=== PATIENT | female | born 1940 | race Caucasian/White ===

== ENCOUNTER 2016-11-07 18:43 | Emergency (ER) | payer MEDICARE, BC ==
--- NOTE | ~2016-11-07 | CR230 ---
[facility] A Service of [facility] RADIOLOGY TEXT RESULTS PATIENT: ISABELA NORRIS LOCATION: [facility] : 38 UNIT #: [id number] AGE: [address]: Amanda Roche MD SEX: F ORDER DR: [id number] [facility] [address] [place], [place] [address] [id number] E MR#: [id number] Acc #: [id number] NAME: ISABELA NORRIS. : 1940 SEX: F STUDY DATE/TIME: 11/07/2016 21:00 UNIT: [facility] ROOM: STUDY DESCRIPTION: CR Shoulder Min 2 View Rt Attending Physician: Amanda Roche M.D. Ordering Physician: Amanda Roche M.D. Primary Care Physician: Husam Beasley M.D. MEDICAL IMAGING REPORT This report is preliminary unless electronic signature is present EXAM Right shoulder 3 views HISTORY Fall today at [facility]. Complaining of shoulder pain. FINDINGS Three views are submitted. The examination shows generalized osteopenia. There is marked narrowing of the space between the acromion and humeral head with superior subluxation of the humeral head relative to the glenoid. 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 No fractures are seen. CONCLUSION 1. AC joint osteoarthropathy. 2. Chronic degeneration of the rotator cuff with superior subluxation of the humeral head relative to the bony glenoid. 3. No acute findings. Dictated by... Dameon Brown M.D. THIS IS AN ELECTRONICALLY VERIFIED REPORT Dameon Brown M.D. at 11/08/2016 6:08 PM JIM/red TD: 11/08/2016 06:39 JOB #: [id number] MEDICAL IMAGING REPORT Page 1 of 1 COPY
--- NOTE | ~2016-11-07 | CT52 ---
[facility] A Service of [facility] RADIOLOGY TEXT RESULTS PATIENT: ISABELA NORRIS LOCATION: [facility] : 38 UNIT #: [id number] AGE: [address]: Amanda Roche MD SEX: F ORDER DR: [id number] [facility] [address] [place], [place] [address] [id number] E MR#: [id number] Acc #: [id number] NAME: ISABELA NORRIS : 1940 SEX: F STUDY DATE/TIME: 11/07/2016 20:30 UNIT: [facility] ROOM: STUDY DESCRIPTION: CT Cervical Spine Wo Cont Attending Physician: Amanda Roche M.D. Ordering Physician: Amanda Roche M.D. Primary Care Physician: Husam Beasley M.D. MEDICAL IMAGING REPORT This report is preliminary unless electronic signature is present EXAM CT of the cervical spine HISTORY Fell today with neck pain. TECHNIQUE Transaxial imaging of the cervical spine was performed without contrast media. Multiplanar reconstructions were obtained and reviewed. This CT examination was performed with one or more of the following radiation dose reduction techniques: automatic exposure control, adjustment of mA and/or kV according to patient size, and iterative reconstruction. FINDINGS Cervical alignment is normal. There is degenerative disc disease with disc space narrowing at C5-6, C6-7 and to a lesser degree at C7-T1. There is facet disease throughout the cervical spine. There is facet disease in the upper thoracic spine as well. Atlantoaxial relationships are intact. No fractures or subluxation is seen. No paraspinous soft tissue edema or fluid collections. CONCLUSION Multilevel degenerative disc disease most prominent C5-6 and C6-7. Advanced multilevel facet disease. No fractures or subluxation identified. Dictated by... Dameon Brown M.D. THIS IS AN ELECTRONICALLY VERIFIED REPORT Dameon Brown M.D. at 11/08/2016 6:08 PM JIM/red [facility] A Service of [facility] RADIOLOGY TEXT RESULTS PATIENT: ISABELA NORRIS LOCATION: [facility] #: [id number] : 38 UNIT #: [id number] AGE: [address]: Amanda Roche MD SEX: F ORDER DR: TD: 11/08/2016 06:30 JOB #: [id number] MEDICAL IMAGING REPORT Page 1 of 1 COPY
--- NOTE | ~2016-11-07 | CR282 ---
[facility] A Service of [facility] RADIOLOGY TEXT RESULTS PATIENT: ISABELA NORRIS LOCATION: [facility] : 38 UNIT #: [id number] AGE: [address]: Amanda Roche MD SEX: F ORDER DR: [id number] [facility] [address] [place], [place] [address] [id number] E MR#: [id number] Acc #: [id number] NAME: ISABELA NORRIS. : 1940 SEX: F STUDY DATE/TIME: 11/07/2016 20:57 UNIT: [facility] ROOM: STUDY DESCRIPTION: CR Wrist Min 3 View Rt Attending Physician: Amanda Roche M.D. Ordering Physician: Amanda Roche M.D. Primary Care Physician: Husam Beasley M.D. MEDICAL IMAGING REPORT This report is preliminary unless electronic signature is present EXAM Wrist, right, 3 views. HISTORY Fell today at [place] with right wrist pain. COMMENT Three views of the right wrist are reviewed. No prior. See separate hand dictation. There is a fracture involving the distal radius. It may be minimally comminuted. It is predominately obliquely oriented at the radial styloid and crosses the articular surface of the distal radius with minimal displacement appreciated. There is probably subtle impaction. Additionally there is severe osteoarthritis. Negative ulnar variance is noted relatively milder than on the left. IMPRESSION There is a predominately obliquely oriented fracture through the radial styloid with minimal displacement. This does involve the articular surface. Fracture fragments may be minimally impacted. There is preexisting severe osteoarthritis. Dictated by... Chiara Maurer M.D. THIS IS AN ELECTRONICALLY VERIFIED REPORT Chiara Maurer M.D. at 11/08/2016 10:05 AM TACO/sharath TD: 11/08/2016 07:11 JOB #: [id number] MEDICAL IMAGING REPORT Page 1 of 1 COPY
--- NOTE | ~2016-11-07 | CR281 ---
[facility] A Service of [facility] RADIOLOGY TEXT RESULTS PATIENT: ISABELA NORRIS LOCATION: [facility] : 38 UNIT #: [id number] AGE: [address]: Amanda Roche MD SEX: F ORDER DR: [id number] [facility] [address] [place], [place] [address] [id number] E MR#: [id number] Acc #: [id number] NAME: ISABELA NORRIS. : 1940 SEX: F STUDY DATE/TIME: 11/07/2016 20:45 UNIT: [facility] ROOM: STUDY DESCRIPTION: CR Wrist Min 3 View Lt Attending Physician: Amanda Roche M.D. Ordering Physician: Amanda Roche M.D. Primary Care Physician: Husam Beasley M.D. MEDICAL IMAGING REPORT This report is preliminary unless electronic signature is present EXAM Left wrist. HISTORY Fell today at [place] and has left wrist pain. COMMENT Three-views of the left wrist are reviewed. There is negative ulnar variance. There are changes of osteoarthritis most severe at the first carpometacarpal joint. No acute fracture or dislocation is appreciated. IMPRESSION Negative ulnar variance. Osteoarthritis. No acute fracture, dislocation or radiopaque foreign body appreciated. Dictated by... Chiara Maurer M.D. THIS IS AN ELECTRONICALLY VERIFIED REPORT Chiara Maurer M.D. at 11/08/2016 10:05 AM TACO/sharath TD: 11/08/2016 06:58 JOB #: [id number] MEDICAL IMAGING REPORT Page 1 of 1 COPY
--- NOTE | ~2016-11-07 | CR141 ---
[facility] A Service of [facility] RADIOLOGY TEXT RESULTS PATIENT: ISABELA NORRIS LOCATION: [facility] : 38 UNIT #: [id number] AGE: [address]: Amanda Roche MD SEX: F ORDER DR: [id number] [facility] [address] [place], [place] [address] [id number] E MR#: [id number] Acc #: [id number] NAME: ISABELA NORRIS. : 1940 SEX: F STUDY DATE/TIME: 11/07/2016 20:43 UNIT: [facility] ROOM: STUDY DESCRIPTION: CR Hand Min 3 Views Lt Attending Physician: Amanda Roche M.D. Ordering Physician: Amanda Roche M.D. Primary Care Physician: Husam Beasley M.D. MEDICAL IMAGING REPORT This report is preliminary unless electronic signature is present EXAM Left hand HISTORY Bilateral hand, wrist, knee, right shoulder pain. Patient fell today at [place]. Also has chest pain. COMMENT Three views of the left hand are reviewed. No previous. Fingers are incompletely extended and the overlap limits the study. There is extensive osteoarthritis noted. This appears to be fairly severe. See the separate dictation for the wrist. No acute fracture, dislocation or radiopaque foreign body appreciated left hand. IMPRESSION Severe osteoarthritis left hand. No acute fracture, dislocation or radiopaque foreign body appreciated left hand. See separate wrist dictation. Dictated by... Chiara Maurer M.D. THIS IS AN ELECTRONICALLY VERIFIED REPORT Chiara Maurer M.D. at 11/08/2016 10:05 AM TACO/red TD: 11/08/2016 07:02 JOB #: [id number] MEDICAL IMAGING REPORT Page 1 of 1 COPY
--- NOTE | ~2016-11-07 | CT101 ---
[facility] A Service of [facility] RADIOLOGY TEXT RESULTS PATIENT: ISABELA NORRIS LOCATION: [facility] : 38 UNIT #: [id number] AGE: [address]: Amanda Roche MD SEX: F ORDER DR: [id number] [place] [id number] [facility]. [place], [place] [address] [id number] E MR#: [id number] Acc #: [id number] NAME: ISABELA NORRIS : 1940 SEX: F STUDY DATE/TIME: 11/07/2016 20:27 UNIT: [facility] ROOM: STUDY DESCRIPTION: CT Maxillofacial Area Wo Cont Attending Physician: Amanda Roche M.D. Ordering Physician: Amanda Roche M.D. Primary Care Physician: Husam Beasley M.D. MEDICAL IMAGING REPORT This report is preliminary unless electronic signature is present EXAM CT of the facial bones. HISTORY Fell today striking face, right orbital swelling. TECHNIQUE Axial imaging of the facial bones is performed. This CT exam was performed with one or more of the following radiation dose reduction techniques: Automatic exposure control, adjustment of mA and/or kV according to patient size, and iterative reconstruction. FINDINGS The study is limited by motion degradation due to the patient's Parkinson's disease. There is mucosal thickening in the right maxillary sinus with a small amount of fluid. There is abnormal soft tissue density in the right ethmoid sinuses with a fracture through the medial wall and herniation of fat. There is mild right exophthalmos. No retrobulbar fluid collections are seen. There is preseptal periorbital soft tissue swelling. CONCLUSIONS 1. Fracture through the medial wall of the right orbit. A small amount of fat protrudes through the fracture and there is edema in the right ethmoid sinuses. 2. There is mucosal edema in the right maxillary sinus and a small amount of fluid although I do not see a definite maxillary floor fracture. 3. Mild right-sided exophthalmos. 4. Preseptal periorbital soft tissue swelling on the right. Dictated by... [facility] A Service of [facility] RADIOLOGY TEXT RESULTS PATIENT: ISABELA NORRIS LOCATION: [facility] : 38 UNIT #: [id number] AGE: [address]: Amanda Roche MD SEX: F ORDER DR: Dameon Brown M.D. THIS IS AN ELECTRONICALLY VERIFIED REPORT Dameon Brown M.D. at 11/08/2016 6:08 PM eRji TD: 11/08/2016 06:22 JOB #: [id number] MEDICAL IMAGING REPORT Page 1 of 1 COPY
--- NOTE | ~2016-11-07 | CR169 ---
[facility] A Service of [facility] RADIOLOGY TEXT RESULTS PATIENT: ISABELA NORRIS LOCATION: [facility] : 38 UNIT #: [id number] AGE: [address]: Amanda Roche MD SEX: F ORDER DR: [id number] [facility] [address] [place], [place] [address] [id number] E MR#: [id number] Acc #: [id number] NAME: ISABELA NORRIS. : 1940 SEX: F STUDY DATE/TIME: 11/07/2016 20:47 UNIT: [facility] ROOM: STUDY DESCRIPTION: CR Knee 2 Views Lt Attending Physician: Amanda Roche M.D. Ordering Physician: Amanda Roche M.D. Primary Care Physician: Husam Beasley M.D. MEDICAL IMAGING REPORT This report is preliminary unless electronic signature is present EXAM Left knee. HISTORY Fell today at [place]. Left knee pain. COMMENT Three films of the left knee reviewed. Patient has had a previous left knee arthroplasty. There is no evidence for acute fracture, dislocation or loosening. Probably some soft tissue swelling anterior to the patella. IMPRESSION Status post left knee arthroplasty without evidence for acute fracture, dislocation or prosthesis loosening. There does appear to be some anterior soft tissue swelling. Comparison film from 10/21/2006 has been restored and the arthroplasty changes are new from that time. Dictated by... Chiara Maurer M.D. THIS IS AN ELECTRONICALLY VERIFIED REPORT Chiara Maurer M.D. at 11/08/2016 10:05 AM TACO/sharath TD: 11/08/2016 07:04 JOB #: [id number] MEDICAL IMAGING REPORT Page 1 of 1 COPY
--- NOTE | ~2016-11-07 | CR142 ---
[facility] A Service of [facility] RADIOLOGY TEXT RESULTS PATIENT: ISABELA NORRIS LOCATION: [facility] : 38 UNIT #: [id number] AGE: [address]: Amanda Roche MD SEX: F ORDER DR: [id number] [facility] [address] [place], [place] [address] [id number] E MR#: [id number] Acc #: [id number] NAME: ISABELA NORRIS : 1940 SEX: F STUDY DATE/TIME: 11/07/2016 20:56 UNIT: [facility] ROOM: STUDY DESCRIPTION: CR Hand Min 3 Views Rt Attending Physician: Amanda Roche M.D. Ordering Physician: Amanda Roche M.D. Primary Care Physician: Husam Beasley M.D. MEDICAL IMAGING REPORT This report is preliminary unless electronic signature is present EXAM Right hand HISTORY Fell today at [place] with right hand pain. COMMENT Three views of the right hand are reviewed. There is severe osteoarthritis present. Since the fingers are not fully extended, this somewhat limits the study but no acute fracture, dislocation or radiopaque foreign body is appreciated. IMPRESSION Severe osteoarthritis right hand. Dictated by... Chiara Maurer M.D. THIS IS AN ELECTRONICALLY VERIFIED REPORT Chiara Maurer M.D. at 11/08/2016 10:05 AM TACO/red TD: 11/08/2016 07:05 JOB #: [id number] MEDICAL IMAGING REPORT Page 1 of 1 COPY
--- NOTE | ~2016-11-07 | CR63 ---
[facility] A Service of [facility] RADIOLOGY TEXT RESULTS PATIENT: ISABELA NORRIS LOCATION: [facility] : 38 UNIT #: [id number] AGE: [address]: Amanda Roche MD SEX: F ORDER DR: [id number] [facility] [address] [place], [place] [address] [id number] E MR#: [id number] Acc #: [id number] NAME: ISABELA NORRIS. : 1940 SEX: F STUDY DATE/TIME: 11/07/2016 21:03 UNIT: [facility] ROOM: STUDY DESCRIPTION: CR Chest 2 View Attending Physician: Amanda Roche M.D. Ordering Physician: Amanda Roche M.D. Primary Care Physician: Husam Beasley M.D. MEDICAL IMAGING REPORT This report is preliminary unless electronic signature is present COULD NOT FIND ORDER EXAM Chest x-ray, 2 views. HISTORY The patient has pain in the chest after falling today at [place]. Particular pain in the right shoulder. COMMENT Two views of the chest attempted. Both of the lateral views submitted are very limited. COMPARISON There is comparison study from 09/15/15. FINDINGS The patient has moderate cardiomediastinal enlargement not changed from 09/15/15. The lung volumes are lower than previously with minimal atelectasis at bases. There are rib fractures on the left side 7, 8, 9, probably 10th ribs. Age indeterminate but new from 2016 and segmental. There is no pleural effusion or pneumothorax. Please correlate for clinical evidence of tenderness or known history of interval fracture. IMPRESSION 1. Interval development of multiple left side posterolateral rib fractures 7 through possibly 10th ribs. These are new since 2016 but otherwise age indeterminate. Please correlate clinically. There is no pleural effusion or pneumothorax suspected. 2. Again, there is moderate cardiomediastinal silhouette enlargement, and there are relatively low lung volumes with probably a small amount of bibasilar atelectasis. [facility] A Service of [facility] RADIOLOGY TEXT RESULTS PATIENT: ISABELA NORRIS LOCATION: [facility] : 38 UNIT #: [id number] AGE: [address]: Amanda Roche MD SEX: F ORDER DR: STAT * RESULT Dictated by... Chiara Maurer M.D. THIS IS AN ELECTRONICALLY VERIFIED REPORT Chiara Maurer M.D. at 11/08/2016 10:01 AM TACO/pilar TD: 11/07/2016 21:58 JOB #: [id number] MEDICAL IMAGING REPORT Page 1 of 1 COPY
--- NOTE | ~2016-11-07 | CT71 ---
[facility] A Service of [facility] RADIOLOGY TEXT RESULTS PATIENT: ISABELA NORRIS LOCATION: [facility] : 38 UNIT #: [id number] AGE: [address]: Amanda Roche MD SEX: F ORDER DR: [id number] [facility] [address] [place], [place] [address] [id number] E MR#: [id number] Acc #: [id number] NAME: ISABELA NORRIS. : 1940 SEX: F STUDY DATE/TIME: 11/07/2016 20:15 UNIT: [facility] ROOM: STUDY DESCRIPTION: CT Head Wo Contrast Attending Physician: Amanda Roche M.D. Ordering Physician: Amanda Roche M.D. Primary Care Physician: Husam Beasley M.D. MEDICAL IMAGING REPORT This report is preliminary unless electronic signature is present EXAM CT brain without contrast media 11/07/2016 COMPARISON 09/15/2015. HISTORY Fell today, left-sided head pain, bruising, swelling over the left orbit and neck pain. History of Parkinson's. TECHNIQUE Axial imaging of the brain was performed without contrast media and directly compared to the patient's previous noncontrast scan of 09/15/2015. This CT examination was performed with one or more of the following radiation dose reduction techniques: automatic exposure control, adjustment of mA and/or kV according to patient size, and iterative reconstruction. FINDINGS Intracranially, the ventricular size and configuration is normal. Small lacunar infarctions are identified in the basal ganglia bilaterally. These are better seen on the current study. These appear chronic. No mass lesions, mass effect acute hemorrhage or edema. No intra- or extraaxial fluid collections are present. There is right periorbital soft tissue swelling. There is edema within the right ethmoid cells and there is a fracture through the lamina papyracea (medial wall of the orbit). There is blood identified within the dependent right maxillary sinus and the patient may have an orbital floor fracture. There is mild exophthalmos on the right. CONCLUSION 1. Intracranially, the patient has small chronic lacunar infarctions in STS. [facility] A Service of [facility] RADIOLOGY TEXT RESULTS PATIENT: ISABELA NORRIS [facility]: [facility] #: [id number] : 38 UNIT #: [id number] AGE: [address]: Amanda Roche MD SEX: F ORDER DR: the basal ganglia but there are no acute intracranial findings. 2. The patient does have mild right exophthalmos, has a fracture through the lamina papyracea (medial wall) of the right orbit and may in fact have an orbital floor fracture. Please see the patients maxillofacial CT scan. Dictated by... Dameon Brown M.D. THIS IS AN ELECTRONICALLY VERIFIED REPORT Dameon Brown M.D. at 11/08/2016 6:08 PM JIM/red TD: 11/08/2016 06:07 JOB #: [id number] MEDICAL IMAGING REPORT Page 1 of 1 COPY
--- NOTE | ~2016-11-07 | CR170 ---
[facility] A Service of [facility] RADIOLOGY TEXT RESULTS PATIENT: ISABELA NORRIS LOCATION: [facility] : 38 UNIT #: [id number] AGE: [address]: Aamnda Roche MD SEX: F ORDER DR: [id number] [facility] [address] [place], [place] [address] [id number] E MR#: [id number] Acc #: [id number] NAME: ISABELA NORRIS. : 1940 SEX: F STUDY DATE/TIME: 11/07/2016 20:47 UNIT: [facility] ROOM: STUDY DESCRIPTION: CR Knee 2 Views Rt Attending Physician: Amanda Roche M.D. Ordering Physician: Amanda Roche M.D. Primary Care Physician: Husam Beasley M.D. MEDICAL IMAGING REPORT This report is preliminary unless electronic signature is present EXAM Knee, 2 views, right. HISTORY The patient fell today at [place] and has right knee pain. COMMENT Three views of the right knee reviewed including a sunrise view of the patella. The patient has had a right knee arthroplasty. There is probably some anterior soft tissue swelling but there is no acute fracture, dislocation or radiopaque foreign body. There is nothing to suggest prosthesis loosening. IMPRESSION Right knee arthroplasty. No acute fracture, dislocation, radiopaque foreign body or evidence for prosthetic loosening. Some soft tissue swelling likely anteriorly. Dictated by... Chiara Maurer M.D. THIS IS AN ELECTRONICALLY VERIFIED REPORT Chiara Maurer M.D. at 11/13/2016 10:31 AM TACO/sharath TD: 11/08/2016 07:07 JOB #: [id number] MEDICAL IMAGING REPORT Page 1 of 1 COPY
[~2016-11-07 18:43] MED LIST: ADVIL200 M3 PO; AMANTADINE PO; AMANTADINE100 M1 PO; CARBIDOPA PO; ELDEPRYL5 MG PO; KEFLEX500 MG PO; METOPROLOL PO; MIRAPEX PO; MIRAPEX1.5 MG PO; PRAMIPEXOLE PO; SELEGILINE PO; SINEMET CR1 TAB 25/1 PO; SINEMET-25/1001 TAB PO; STALEVO PO; SYNTHROID PO; SYNTHROID75 MCG PO; TOPROL XL PO; TOPROL XL50 MG PO; TRAMADOL PO; TRIAMTERENE-HCTZ PO; VICODIN 5/1 TAB 5/50 PO; VITAMIN D50000 UNIT PO; [UNRECOGNIZED DRUG - MIXTURE] PO
== END 2016-11-07 23:57 | disposition hospice, home (50) ==
LOC: CED 18:43
DX: S52.511A Displaced fracture of right radial styloid process, initial encounter for closed fracture (principal); S22.42XA Multiple fractures of ribs, left side, initial encounter for closed fracture; S02.81XA Fracture of other specified skull and facial bones, right side, initial encounter for closed fracture; S80.02XA Contusion of left knee, initial encounter; S80.01XA Contusion of right knee, initial encounter; I10 Essential (primary) hypertension; Z87.891 Personal history of nicotine dependence; Z90.710 Acquired absence of both cervix and uterus; Z88.5 Allergy status to narcotic agent; W01.0XXA Fall on same level from slipping, tripping and stumbling without subsequent striking against object, initial encounter; Y92.89 Other specified places as the place of occurrence of the external cause
CPT/HCPCS: 29125; 70450; 70486; 71020; 72125; 73030; 73110; 73130; 73560; 99285